=== PATIENT | male | born 1995 | race Caucasian/White ===

== ENCOUNTER 2020-06-01 10:24 | Emergency (ER) | payer BC, SELFPAY ==
[2020-06-01 10:43] VITALS: BP 135/76; PULSE 68; RESP 19; TEMP 36.8; O2SAT 98
--- NOTE | 2020-06-01 11:02 | HMH.EDUTC ---
[facility] [place] Clinical Impression: Encounter for laboratory testing for COVID-19 virus Disposition: Home, Self-Care Condition on Discharge: Good Instructions: Preventing the Spread of Coronavirus Discharge Instructions Additional Instructions: You was tested for today for COVID19 your test result should be back later this evening, you may call back later this evening to see if your test results are back and the result You was given a handout with instructions for Self Quarantine and Self isolation for while you wait on test results and what to do if they are positive Return if needed Straight to ER if any life threatening symptoms Referrals: Genet Ochoa [Primary Care Provider] - As needed Time of Disposition: 11:08 Medical Decision Making - Lobo Inquiry Pt receiving controlled substance: No Lobo was queried for this patient: No Vital Signs: 06/01/20 10:43 Temperature 98.2 F Temperature Source Oral Pulse Rate [Radial] 68 Respiratory Rate 19 Blood Pressure [Right Arm] 135/76 Blood Pressure Mean [Right Arm] 95 Blood Pressure Source [Right Arm] Automatic Cuff Blood Pressure Position [Right Arm] Sitting 02 Sat by Pulse Oximetry 98 Oxygen Delivery Method Room Air Orders (Tests/Meds): ORDERS Category Date Time Status Covid-19 Nasal PCR ([facility]) Routine Lab 06/01/20 10:45 [place] [facility] [place] - General Stated complaint: wants covid test Time Seen by Provider: 06/01/20 11:02 Mode of Arrival: Ambulatory Source of Information: Patient Limitations: No Limitations Description of Symptoms (Recalled from Triage Doc. by RN): covid exposure wednesday no symptoms HEENT Symptoms (Recalled from RN notes): No Resp Symptoms (Recalled from RN notes): No Skin Symptoms (Recalled from RN notes): No MS Symptoms (Recalled from RN notes): No Functional Status (Recalled from RN notes): wnl - History of Present Illness Provider Complaint: Patient states that he was recently around someone earlier in the week that tested positive for COVID States that he is not having any symptoms but was concerned and wanted to get tested to see if he may have it too - Related Data Allergies Allergy/AdvReac Type Severity Reaction Status Date / Time No Known Allergies Allergy Verified 06/01/20 10:46 - Worker's Comp Is this a Worker's Comp case?: No [facility] History - Hepatitis A Screen Drug use history?: No High risk sexual behaviors?: No History of sexually transmitted infection?: No Currently employed?: No Childcare worker?: No Do you have indoor plumbing?: Yes Do you have electricity?: Yes Attestation statement:: This patient has been screened for Hepatitis A risk factors. I have reviewed the patient's past medical history: Yes - Social History Alcohol Intake: never Occupational Status: employed ROS Obtained: Yes All systems reviewed & no additional complaints, Yes Systems reviewed as appropriate & no additional complaints - Constitutional Constitutional: Reports system reviewed and no additional complaints, except as docu, Denies body ache, Denies chills, Denies fever(s), Denies headache(s) - ENT Ears, Nose, Mouth, and Throat: Denies nasal congestion, Denies nasal discharge, Denies sore throat - Cardiovascular Cardiovascular: Reports system reviewed and no additional complaints, except as docu - Respiratory Respiratory: No chest congestion, No cough, No dyspnea - Gastrointestinal Gastrointestingal: Reports: system reviewed and no additional complaints, except as docu. Denies: abdominal pain, cramping, diarrhea, nausea, vomiting Physical Exam - General General appearance: alert, in no apparent distress - Head Head exam: atraumatic, normocephalic, normal inspection - Eye Eye exam: Present: normal appearance, PERRL, EOMI - ENT ENT exam: Present: normal exam, normal oropharynx, mucous membranes moist, TM's normal bilaterally, normal external ear exam - Chest Chest inspection: Present: normal ins
[2020-06-01 11:16] VITALS: BP 135/76; PULSE 68; RESP 19; TEMP 36.8; O2SAT 98
== END 2020-06-01 11:17 | disposition home or self-care (01) ==
PROVIDERS: Emergency Provider Nurse Practitioner; PCP Pediatrics
DX: Z20.828 Contact with and (suspected) exposure to other viral communicable diseases (principal)
CPT/HCPCS: 99201; U0003

== ENCOUNTER → 2021-09-08 09:11 | Outpatient (CLI) | payer BC, SELFPAY | PROVIDERS: Visit Provider Nurse Practitioner | DX: U07.1 COVID-19 (principal) | CPT/HCPCS: C9803; U0003; U0005 ==

== ENCOUNTER 2023-01-12 15:56 | Emergency (ER) | payer BC, SELFPAY ==
--- NOTE | 2023-01-12 13:26 | CT_ITS ---
PROCEDURE INFORMATION: Exam: CT Lumbar Spine Without Contrast Exam date and time: 01/12/2023 4:28 PM Age: 27 years old Clinical indication: Injury or trauma; Fall; Blunt trauma (contusions or hematomas); Additional info: Fall, pain TECHNIQUE: Imaging protocol: Computed tomography of the lumbar spine without contrast. Radiation optimization: All CT scans at this facility use at least one of these dose optimization techniques: automated exposure control; mA and/or kV adjustment per patient size (includes targeted exams where dose is matched to clinical indication); or iterative reconstruction. REPORTING DATA: Count of CT and Cardiac NM exams in prior 12 months: This patient has received 0 known CTs and 0 known cardiac nuclear medicine studies in the 12 months prior to the current study. COMPARISON: CT PELVIS WO CON 01/12/2023 4:19 PM FINDINGS: Bones/joints: No acute fracture. Normal alignment. Minor disc bulging at L4-L5 and L5-S1. No disc herniation. No severe spinal canal stenosis. No significant neural foraminal narrowing. Soft tissues: Unremarkable. IMPRESSION: No acute findings.
[2023-01-12 15:56] VITALS: BP 129/92; PULSE 58; RESP 16; TEMP 36.4; O2SAT 99
--- NOTE | 2023-01-12 15:57 | XR_ITS ---
FINAL REPORT CLINICAL HISTORY: Chest pain after a fall FINDINGS: A single portable view of the chest was obtained. The heart size and pulmonary vascularity are within normal limits. The mediastinum is within normal limits. No acute pulmonary abnormality is identified. The bony thorax is intact. IMPRESSION: No active cardiopulmonary disease. Reviewed, Interpreted and Dictated by Moise Jones III, MD Transcribed by Lily León Authenticated and [facility]
[2023-01-12 16:01] VITALS: PULSE 63; O2SAT 95
--- NOTE | 2023-01-12 16:02 | PC.NURSE ---
pt refusing blood work and IV at this time
--- NOTE | 2023-01-12 16:03 | XR_ITS ---
FINAL REPORT CLINICAL HISTORY: fall, pain, swelling FINDINGS: LEFT ELBOW 3 views were obtained. There is no acute fracture or dislocation. The joint spaces are intact. There is no soft tissue abnormality. IMPRESSION: No acute bony abnormality. Reviewed, Interpreted and Dictated by Moise Jones III, MD Transcribed by Lily León Authenticated and [facility]
--- NOTE | 2023-01-12 16:06 | PC.NURSE ---
AIDE KRAUS at
--- NOTE | 2023-01-12 16:09 | CT_ITS ---
FINAL REPORT CLINICAL HISTORY: fall, pain FINDINGS: CT PELVIS WITHOUT CONTRAST TECHNIQUE: Axial, reformatted were obtained of the PELVIS. This study was performed with techniques to keep radiation doses as low as reasonably achievable, (ALARA). Individualized dose reduction techniques using automated exposure control or adjustment of mA and/or kV according to the patient's size were employed. FINDINGS: No fracture is identified. The joint space is preserved. Musculature is intact. There is no soft tissue mass. There is a questionable appendicolith in the appendix. IMPRESSION: No acute bony abnormality. Questionable appendicolith in the appendix. Reviewed, Interpreted and Dictated by Moise Jones III, MD Transcribed by Lily León Authenticated and [facility]
--- NOTE | 2023-01-12 16:09 | CT_ITS ---
PROCEDURE INFORMATION: Exam: CT Thoracic Spine Without Contrast Exam date and time: 01/12/2023 4:14 PM Age: 27 years old Clinical indication: Injury or trauma; Fall; Blunt trauma (contusions or hematomas); Additional info: Fall, pain TECHNIQUE: Imaging protocol: Computed tomography of the thoracic spine without contrast. Radiation optimization: All CT scans at this facility use at least one of these dose optimization techniques: automated exposure control; mA and/or kV adjustment per patient size (includes targeted exams where dose is matched to clinical indication); or iterative reconstruction. REPORTING DATA: Count of CT and Cardiac NM exams in prior 12 months: This patient has received 0 known CTs and 0 known cardiac nuclear medicine studies in the 12 months prior to the current study. COMPARISON: No relevant prior studies available. FINDINGS: Bones/joints: No acute fracture. Normal alignment. No significant disc bulge or herniation. No severe spinal canal stenosis. No significant neural foraminal narrowing. Soft tissues: Unremarkable. IMPRESSION: No acute findings.
--- NOTE | 2023-01-12 16:32 | PC.NURSE ---
pt arrived back to room
--- NOTE | 2023-01-12 16:45 | HMH.EDFALL ---
Discharge Plan Disposition Patient Disposition: Home, Self-Care Prescriptions Prescriptions: New meloxicam 15 mg tablet 15 mg PO DAILY Qty: 10 0RF Referrals Follow up/Referrals: Provider,Referral, MD [Primary Care Provider] - See instructions Clinical Impressions Clinical Impression: Lumbar back sprain, Pelvic sprain, Abrasion forearm, Fall Instructions Patient Instructions: DI for Low Back Pain Discharge ED Provider: Louise (ED)Cristi HPI General Chief Complaint: Fall Stated Complaint: fall, lower back pain Time Seen by Provider: 01/12/23 16:45 Mode of Arrival: Ambulatory Source of Information: Patient, Spouse and Medical Record Limitations: No Limitations Description of Symptoms (Recalled from ER Triage Doc. by RN): pt reports fell from a roof approx 10 ft in the air. Pt reports he landed on the side of a van. Pt c/o L elbow pain, abarasion noted to L elbow. Pt c/o Lumbar area pain. Denies numbness, tingling, decreased sensation. Denies LOC, denies neck pain. History of Present Illness HPI Narrative: pt with fall off roof about8-10 feet and has lower back pain with no loc and no nayak or neck pain and no chest or abd pain no neuro sx MD complaint: fall Onset (ago): hour(s) Fall from: from height (distance) Fall witnessed: no Place fall occurred: home Loss of consciousness: none Prolonged down time: no Symptoms prior to fall: none Context: tripped/slipped Location of injury: back Severity: moderate Associated symptoms (after fall): denies Related Data Previous Rx's Medication Instructions Recorded meloxicam 15 mg tablet 15 mg PO DAILY #10 tabs 01/12/23 Allergies Allergy/AdvReac Type Severity Reaction Status Date / Time No Known Allergies Allergy Verified 06/01/20 10:46 [facility] Disclaimer: The information contained in this section may have been updated after the patient was seen, as this information can be updated by other users. Social History Smoking Status: Never smoker alcohol intake: never current occupational status: employed Travel in the last 8 weeks: None ROS Obtained: Yes All systems reviewed & no additional complaints except as documented Physical Exam General General appearance: alert Head Head exam: normocephalic Eye Eye exam: Present PERRL and EOMI; Absent scleral icterus ENT ENT exam: Present mucous membranes moist Neck Neck exam: Present full ROM and trachea midline; Absent tenderness Chest Chest inspection: Present normal inspection; Absent tenderness Respiratory Respiratory exam: Present normal lung sounds bilaterally Cardiovascular Cardiovascular exam: Present regular rate; Absent systolic murmur Abdominal Exam Abdominal exam: Present soft; Absent tenderness, guarding or rebound Extremities Exam Extremities exam: Present full ROM Back Exam Back exam: Present tenderness and paraspinal tenderness; Absent full ROM Neurological Exam Neurological exam: Present alert, oriented X3 and CN II-XII intact; Absent motor sensory deficit Psychiatric Psychiatric exam: Present normal affect Skin Skin exam: Absent rash Medical Decision Making Medical Records Medical records reviewed: Yes I reviewed the patient's medical records. Lobo Inquiry Pt receiving controlled substance: No Vital Signs: 01/12/23 15:56 01/12/23 16:01 01/12/23 17:01 Temperature 97.6 F Temperature Source Oral Pulse Rate 63 78 Pulse Rate [Right Radial] 58 L Respiratory Rate 16 Blood Pressure 124/89 Blood Pressure [Right Arm] 129/92 H Blood Pressure Mean 96 Blood Pressure Mean [Right Arm] 104 Blood Pressure Source [Right Arm] Automatic Cuff Blood Pressure Position [Right Arm] Supine 02 Sat by Pulse Oximetry 99 95 100 Oxygen Delivery Method Room Air Room Air Lab Data Lab results reviewed: Yes I reviewed the patient's lab results. Orders (Tests/Meds): ED MEDICATIONS Generic Name Dose Route Start Last Admin Trade Name Freq [place]
[2023-01-12 17:01] VITALS: BP 124/89; PULSE 78; O2SAT 100
[2023-01-12 17:15] VITALS: PULSE 72; O2SAT 100
--- NOTE | 2023-01-12 17:22 | PC.NURSE ---
checked on pt he needed to use restroom, unlocked door to restroom connected to his room, significant other at bedside
--- NOTE | 2023-01-12 17:27 | PC.NURSE ---
checked on pt at this time. pt sitting up on side of the bed, visitor at BS. Updated pt his results are starting to come through from radiology scans, but all are not back yet. Pt states no needs at this time.
--- NOTE | 2023-01-12 18:21 | PC.NURSE ---
checked on pt states he in pain, relayed message to charge nurse, significant other at bedside
--- NOTE | 2023-01-12 18:28 | PC.NURSE ---
contacted rad to check on status of L spine results, rad staff checking on it
[2023-01-12 18:31] VITALS: PULSE 78; O2SAT 95
--- NOTE | 2023-01-12 18:34 | PC.NURSE ---
per rad staff can not find images of ct lumbar spine. notified ER MD, reports requesting rad staff scan pt again. Rad staff notified of needing ct lumbar spine, requests a new order, order placed in the computer. Pt and family updated that he will need to return to ct scanner for lumbar images r/t images are not present for reading, pt verbalized understanding. pt given pain medication per MAR, pt eating crackers and water given. Pt states no other needs at this time.
--- NOTE | 2023-01-12 18:39 | PC.NURSE ---
pt to ct via wheelchair
--- NOTE | 2023-01-12 18:47 | PC.NURSE ---
pt return from CT
[2023-01-12 19:12] VITALS: BP 120/74; PULSE 81; RESP 17; TEMP 36.7; O2SAT 98
== END 2023-01-12 19:12 | disposition home or self-care (01) ==
PROVIDERS: Emergency Provider Emergency Medicine
DX: S33.8XXA Sprain of other parts of lumbar spine and pelvis, initial encounter (principal); S50.312A Abrasion of left elbow, initial encounter; W13.2XXA Fall from, out of or through roof, initial encounter
CPT/HCPCS: 71045; 72128; 72131; 72192; 73080; 99284; 99285

== ENCOUNTER 2024-05-06 05:26 | Emergency (ER) | payer BC, SELFPAY ==
[2024-05-06 05:28] VITALS: BP 134/76; PULSE 86; RESP 16; TEMP 37.3; O2SAT 98
--- NOTE | 2024-05-06 05:53 | CT_ITS ---
PROCEDURE INFORMATION: Exam: CT Cervical Spine Without Contrast Exam date and time: 05/06/2024 6:18 AM Age: 28 years old Clinical indication: Injury or trauma; Fall; Blunt trauma; Additional info: Syncope struck head neck pain TECHNIQUE: Imaging protocol: Computed tomography of the cervical spine without contrast. Radiation optimization: All CT scans at this facility use at least one of these dose optimization techniques: automated exposure control; mA and/or kV adjustment per patient size (includes targeted exams where dose is matched to clinical indication); or iterative reconstruction. COMPARISON: CT HEAD/BRAIN WO CON 05/06/2024 6:15 AM FINDINGS: Bones: No acute fracture. Normal alignment. No significant disc bulge or herniation. No severe spinal canal stenosis. No significant neural foraminal narrowing. Lungs: Lung apices are normal. Soft tissues: Unremarkable. IMPRESSION: No acute findings.
--- NOTE | 2024-05-06 05:53 | ECG_ITS ---
APPROVED REPORT Exam: Resting ECG HR:77 bpm ECG Measurements Heart Rate 77 AXES IN 131 P 36 QRSd 94 QRS 99 QT 344 T 61 QTc 376 Conclusion Sinus rhythm Incomplete right bundle branch block Electronically signed by : DRAGAN LAWSON, 05/07/2024 20:08:48
--- NOTE | 2024-05-06 05:53 | CT_ITS ---
PROCEDURE INFORMATION: Exam: CT Head Without Contrast Exam date and time: 05/06/2024 6:15 AM Age: 28 years old Clinical indication: Syncope and collapse; Additional info: Syncope struck head sz type activity TECHNIQUE: Imaging protocol: Computed tomography of the head without contrast. Radiation optimization: All CT scans at this facility use at least one of these dose optimization techniques: automated exposure control; mA and/or kV adjustment per patient size (includes targeted exams where dose is matched to clinical indication); or iterative reconstruction. COMPARISON: No relevant prior studies available. FINDINGS: Brain: Normal. No hemorrhage. Unremarkable white matter. No mass effect. Cerebral ventricles: No ventriculomegaly. Paranasal sinuses: Visualized sinuses are unremarkable. No fluid levels. Mastoid air cells: Visualized mastoid air cells are well aerated. Bones: Unremarkable. No acute fracture. Soft tissues: Unremarkable. IMPRESSION: No acute intracranial abnormality.
--- NOTE | 2024-05-06 05:56 | [facility].EDGENADL ---
Discharge Plan Disposition Patient Disposition: Home, Self-Care Condition: Good Prescriptions Prescriptions: No Action meloxicam 15 mg tablet 15 mg PO DAILY Qty: 10 0RF Referrals Follow up/Referrals: Provider,Referral, MD [Primary Care Provider] - See instructions Activity Restrictions/Add. Instructions Additional Instructions/Restrictions: You were evaluated in the ER and are appropriate for discharge at this time. Drink plenty of water, take Tylenol and ibuprofen for fevers and bodyaches, do not exceed the recommended dose on the bottle. Make an appointment with your primary care doctor for reevaluation in a few days for reevaluation. Return to the ER with new, worsening, or otherwise concerning symptoms. Clinical Impressions Clinical Impression: Syncope, Body aches, Fever, Headache, Cough Print Language Print Language: Vietnamese Discharge ED Provider: Sunday Javier General Adult HPI General Chief complaint: Upper Respiratory Infection Stated complaint: seizure high fever and headache Time Seen by Provider: 05/06/24 05:43 Mode of Arrival: Ambulatory Source of Information: Patient Limitations: No Limitations Description of Symptoms (Recalled from ER Triage Doc. by RN): pt reports fever, dry cough and headache since Wednesday, reports he may have passed out or had a seizure, family reports him yelling for her, when she got to bathroom he was Seizing came to within minutes, pt reports history of seizures, reports takign Tylenol/Motrin around the clock, last dose last pm History of Present Illness HPI narrative: 28-year-old male presents to the ER with complaints of fever, dry cough, headache, body aches since Wednesday. Patient reports he woke up feeling as though he may throw up so he walked to the bathroom, he felt hot all over and then lightheaded, called for his family, but fell. Family found him unconscious in the bathroom with mild shaking that she is unsure how long it lasted however she immediately called EMS and the episode spontaneously resolved. Patient immediately was back to baseline, oriented, following commands, conversing with EMS, telling them not to come. Patient has had fevers of 101-102 at home and reports taking Tylenol and Motrin frequently. He does report having 1 isolated seizure as a child. Patient is now complaining of headache and neck pain after striking his head on the toilet when he fell. Patient reports general headache, no photophobia, no numbness, tingling, weakness. Patient presented ambulatory to the ER fully oriented. Related Data Previous Rx's ?Medication ?Instructions ?Recorded meloxicam 15 mg tablet 15 mg PO DAILY #10 tabs 01/12/23 Allergies Allergy/AdvReac Type Severity Reaction Status Date / Time No Known Allergies Allergy Verified 06/01/20 10:46 [facility] Disclaimer: The information contained in this section may have been updated after the patient was seen, as this information can be updated by other users. Social History Smoking Status: Never smoker alcohol intake: never current occupational status: employed Travel in the last 8 weeks: None ROS Obtained: Yes All systems reviewed & no additional complaints except as documented Positive ROS per HPI Physical Exam General General appearance: alert and in no apparent distress Head Head exam: atraumatic and normocephalic Eye Eye exam: Present PERRL and EOMI ENT ENT exam: Present mucous membranes moist Neck Neck exam: Present normal inspection, full ROM and tenderness (Bilateral cervical spine paraspinal muscle tenderness, no midline deformity or step-off) Chest Chest inspection: Present symmetric chest wall rise Respiratory Respiratory exam: Present normal lung sounds bilaterally; Absent respiratory distress, wheezes or stridor Cardiovascular Cardiovascular exam: Present regular rate and normal rhythm Abdominal Exam Abdominal exam: Present soft; Absent distention or tenderness Extremities Exam Extremities exam: Present full ROM; Absent tenderness or edema Neurological Exam Neurological exam: Present alert, oriented X3, CN II-XII intact and normal gait; Absent motor sensory deficit Psychiatric Psychiatric exam: Present normal affect and normal mood Skin Skin exam: Present warm and dry Medical Decision Making Medical Records Medical records reviewed: Yes I reviewed the patient's medical records. MR Comment: Patient was evaluated in [facility] for possible COVID in 2019. I am unable to view these test results. Lobo Inquiry Pt receiving controlled substance: No Vital Signs: 05/06/24 05:28 05/06/24 06:05 05/06/24 06:56 Temperature 99.1 F 99.7 F H 98.2 F Temperature Source Oral Oral Oral Pulse Rate 84 Pulse Rate [Right] 86 Respiratory Rate 16 16 Blood Pressure 108/77 L Blood Pressure [Right Arm] 134/76 Blood Pressure Mean [Right Arm] 95 Blood Pressure Source Automatic Cuff Blood Pressure Source [Right Arm] Automatic Cuff Blood Pressure Position [Right Arm] Sitting 02 Sat by Pulse Oximetry 98 Oxygen Delivery Method Room Air Room Air Lab Data Lab Results 05/06/24 05:38: SARS-CoV-2 (PCR) Not detected, Influenza A Untype (PCR) Not detected, Influenza Type B (PCR) Not detected Orders (Tests/Meds): ED MEDICATIONS Discontinued Medications Generic Name Dose Route Start Last Admin Trade Name Jose Angel PRN Reason Stop Dose Admin Ibuprofen 600 mg 05/06/24 06:08 05/06/24 06:11 Ibuprofen 600 Mg Tablet PO 05/06/24 06:09 600 mg ONCE ONE Administration ORDERS Category Date Time Status CT cervical spine wo con Stat Cat Scan 05/06/24 05:[address] head/brain wo con Stat Cat Scan 05/06/24 05:53 Completed Rapid PCR Covid and Flu A/B Stat Lab 05/06/24 05:38 Completed ECG Request Stat Y 05/06/24 05:53 Ordered Medical Decision Narrative: In summary, this is 28-year-old male with no known chronic medical conditions, no daily medication, no drug allergies presents to the emergency department today with headache, fever, cough, body aches, syncope with shaking. On initial evaluation patient is dynamically stable, afebrile, GCS 15, no focal neurologic deficits, paraspinal cervical muscle tenderness without midline deformity or step-off, no findings of injury to the scalp or skull, cardiopulmonary exam reassuring, remainder of exam benign. Differential diagnosis includes but is not limited to viral syndrome including COVID, influenza, I considered the possibility of seizure however patient did not have a postictal period and it was associated with prodromal symptoms of feeling hot and lightheadedness which are not typical of seizures, I believe this was more likely to be vasovagal syncope with seizure-like activity, also considered electrolyte abnormality, dehydration, however I recommended serum labs to the patient for further evaluation of abnormality such as these as well as to get a troponin for cardiac workup of syncope, however patient is refusing serum labs at this time stating he does not want to be stuck with a needle. He understands risks of foregoing these labs. Based on these concerns, I ordered ECG to assess for arrhythmia, CT head and C-spine to assess for injury from his fall as well as evaluate intracranial contents for possible other etiology of syncope/seizure-like activity, viral swab. ECG personally interpreted demonstrates normal sinus rhythm, rate 77, borderline right axis deviation, normal MD and QTc, no STEMI, no findings of WPW, Brugada, or HCM. Patient received ibuprofen for treatment in the ER as his temperature started to slightly increase while in the ED though he was never truly febrile. Labs personally reviewed demonstrate negative COVID/flu. CT head personally interpreted does not demonstrate acute intracranial abnormality, CT cervical spine without acute traumatic injury. See radiology reads for final interpretation. On reassessment patient is resting comfortably. He continues to be stable and at this time I believe is appropriate for discharge. I encouraged him to drink plenty of water, given instructions for continued antipyretic use, follow-up instructions, and strict return precautions for the ER. He and family at bedside indicated understanding and the patient was discharged in stable condition. Critical Care Critical Care Time Critical Care Time: No
[2024-05-06 06:00] LABS: Coronavirus 19, PCR Not Detected (NotDetected); Influenza A, PCR Not Detected (NotDetected); Influenza B, PCR Not Detected (NotDetected)
[2024-05-06 06:05] VITALS: TEMP 37.6
[2024-05-06] MEDS: IBUPROFEN 600 MG TABLET PO (06:11)
[2024-05-06 06:56] VITALS: BP 108/77; PULSE 84; RESP 16; TEMP 36.8; O2SAT 95
== END 2024-05-06 07:04 | disposition home or self-care (01) ==
PROVIDERS: Emergency Provider Emergency Medicine
DX: R55 Syncope and collapse (principal); R51.9 Headache, unspecified; R50.9 Fever, unspecified; R56.9 Unspecified convulsions; R05.9 Cough, unspecified
CPT/HCPCS: 70450; 72125; 87636; 93005; 99285